=== PATIENT | female | born 1960 | race African-American/Black ===

== ENCOUNTER → 2019-11-07 07:48 | Outpatient (CLI) | payer OTHER, SELFPAY ==
--- NOTE | 2019-11-07 | DI.MG.S_ITS ---
BILATERAL DIGITAL SCREENING MAMMOGRAM 3D/2D WITH CAD: 11/07/2019 CLINICAL: Routine screening. Comparison is made to exams dated: 10/17/2018 mammogram, 10/20/2017 mammogram, and 11/08/2016 mammogram - [facility]. There are scattered fibroglandular elements in both breasts. Current study was also evaluated with a Computer Aided Detection (CAD) system. No significant masses, calcifications, or other findings are seen in either breast. There has been no significant interval change. IMPRESSION: NEGATIVE There is no mammographic evidence of malignancy. A 1 year screening mammogram is recommended. This exam was interpreted at Station ID: [id number]. NOTE: For mammograms, a report in lay terms will be sent to the patient. Approximately 15% of breast malignancies will not be visualized mammographically. In the management of a palpable breast mass, a negative mammogram must not discourage biopsy of a clinically suspicious lesion. Electronically Signed By: Glenis palacio/elina:11/07/2019 08:27:42 letter sent: Normal Exam ACR BI-RADS Category 1: Negative 3341F
== END ==
PROVIDERS: Family Provider Physician Assistant; PCP Physician Assistant; Referring Provider Physician Assistant; Visit Provider Physician Assistant
DX: Z12.31 Encounter for screening mammogram for malignant neoplasm of breast (principal)
CPT/HCPCS: 77063; 77067

== ENCOUNTER → 2020-05-02 08:31 | Outpatient (CLI) | payer OTHER, SELFPAY ==
[2020-05-03 09:26] LABS: COVID19 Sendout Not Detected (Not Detect)
== END ==
PROVIDERS: Family Provider Physician Assistant; PCP Physician Assistant; Visit Provider Physician Assistant
DX: Z11.59 Encounter for screening for other viral diseases (principal)
CPT/HCPCS: 87635

== ENCOUNTER 2020-05-05 08:23 | Day surgery (SDC) | payer OTHER, SELFPAY ==
[2020-05-05] VITALS (7 sets, daily range): BP systolic 91–104; BP diastolic 57–72; PULSE 52–77; RESP 9–21; TEMP 36.1–37.1; O2SAT 97–100; BMI 28.8
--- NOTE | 2020-05-05 | PATH_ITS ---
[facility] Accession Number: [id number] . 01 Material submitted: . PART A: colon - COLON POLYP AT 60CM PART B: colon - COLON POLYP AT 40CM PART C: colon - COLON POLYP AT 15CM . 01 Clinical history: . SDC . 02 Diagnosis: A. Colon, Polyp at 60 cm, Biopsy: Tubular adenoma. . B. Colon, Polyp at 40 cm, Biopsy: Tubular adenoma. . C. Colon, Polyp at 15 cm, Biopsy: Hyperplastic polyp. MRV 05/07/2020 1322 Local . 02 Electronically signed: . Leesa Dee MD, Pathologist NPI- [id number] . 01 Gross description: . Part A: COLON POLYP AT 60CM: Received in formalin are multiple fragment(s) of hickey, soft tissue measuring 0.6 x 0.5 x 0.2 cm in aggregate submitted entirely in 1 cassette(s) Part B: COLON POLYP AT 40CM: Received in formalin is 1 fragment(s) of hickey, soft tissue measuring 0.7 x 0.6 x 0.2 cm submitted entirely in 1 cassette(s) Part C: COLON POLYP AT 15CM: Received in formalin is 1 fragment(s) of hickey, soft tissue measuring 0.3 x 0.3 x 0.3 cm submitted entirely in 1 cassette(s) /QBJ 05/06/2020 0700 Local . 02 Pathologist provided ICD-10: D12.6 . 02 CPT . 563006, 519617, 932289 Performed at: [address] [facility], [place], [place] [id number] MD Mike Dorsey MD Phone: [phone] Performed at: [address] [place] [id number] [place] [id number] MD Leesa Dee MD Phone: [phone]
--- NOTE | 2020-05-05 09:52 | P.HP_ITS ---
History of Present Illness History of Present Illness Date Patient Seen: 05/05/20 Time Patient Seen: 09:29 Chief complaint: SDC Narrative: The patient is a woman here for screening colonoscopy her last exam was in 2012. She has a history of polyps. Her last exam she ceased breathing and became rigid and had to be bagged and reversed. Because of that anesthesia will be involved in this exam. We will avoid the use of Versed and fentanyl. Patient History Medical History Arthritis (Acute) Bruises easily (Acute) Diabetes (Acute) Eczema (Acute) History of colon polyps (Acute) Surgical History History of hysterectomy (Acute) History of laparoscopic cholecystectomy (Acute) Family & Social History Social History: household members spouse Tobacco & Substance use: Smoking Status Former smoker alcohol intake current alcohol intake frequency a few times a month Substance Use Type does not use Meds Home Medications and Allergies Home Medications Medication Instructions Recorded Confirmed Type aspirin [Aspirin Low Dose] 81 mg PO DAILY PRN 05/05/20 05/05/20 History conjugated estrogens [Premarin] 0.3 mg PO DAILY 05/05/20 05/05/20 History metformin 500 mg PO DAILY 05/05/20 05/05/20 History telmisartan [Micardis] 40 mg PO DAILY 05/05/20 05/05/20 History Allergies Allergy/AdvReac Type Severity Reaction Status Date / Time No Known Drug Allergies Allergy Verified 05/05/20 08:56 Review of Systems Review of Systems ROS: Yes All systems reviewed with the patient and are negative except as otherwise documented Exam Vital Signs (past 8 hours): - 05/05/20 09:05 Temperature 97.4 F L Pulse Rate 77 Respiratory Rate 12 Blood Pressure 97/72 Pulse Oximetry 100 Oxygen Delivery Method Room Air Narrative Exam Narrative: Pleasant cooperative patient no apparent distress. Lungs are clear to auscultation. No rales or rhonchi. Heart regular rate and rhythm no murmur gallop. Abdomen is soft nontender without mass. No obvious hernias. P atient is alert and oriented x3. Assessment & Plan Assessment & Plan narrative: The patient for a screening colonoscopy. I have discussed the procedure with them. Risks of bleeding, perforation which would necessitate major operation, failure to find remove all lesions, the potential tattoo were all discussed. All questions were answered. They wished to proceed.
--- NOTE | 2020-05-05 10:42 | PM.PREOP ---
Pre-operative Note COVID-19 COVID-19 status: Negative Result date/Date tested (Pos, Neg/Pending): 05/02/20 Interval Note History & Physical reviewed/Exam performed by Physician: Yes Changes to H&P: No
--- NOTE | 2020-05-05 10:42 | PM.OP.ENDO ---
Operative Date/Time/Diagnoses Date of procedure: 05/05/20 Time of procedure: 10:43 Pre-op diagnosis: Screening for colon cancer. History of polyps. Last exam was 7 years ago. The patient had an episode of rigidity in ceased breathing at that scope and therefore anesthesia is involved at this 1 Post-op diagnosis: same (Four polyps) Procedure & Clinicians Study performed: Colonoscopy with hot snare polypectomy and cold biopsy Same procedure as scheduled: Yes Indications: Screening Surgeon: Parker Hinds Procedure Notes SCOAP/Timeout: Perform Procedure in detail: The patient was placed in the left lateral decubitus position and underwent IV sedation directed by the surgeon consisting of fentanyl and Versed. Digital exam was unremarkable. The scope was inserted and advanced through the rectum into the sigmoid, descending, transverse, and ascending colon. The patient had a very tortuous distal sigmoid.. The cecum was reached identified by the ileocecal valve and the appendiceal opening. The ileocecal valve was successfully cannulated. The terminal ileum was normal in appearance. The scope was gradually brought out. Polyps were found at 60 cm(2 very small polyps), 40 cm(snared with a hot snare), polyp at 15 cm which may not have been a neoplastic lesion. The scope ultimately was retroflexed in the rectum. The appearance was normal. The scope was removed and the patient tolerated the procedure well. The prep was good Scope withdrawal time: Over 6 minutes(total time much Sedation minutes: 0 (Deep sedation provided by Anesthesia due to patient's prior history) Findings: polyp (Multiple) Specimen(s): other (Polyps) Complications: none Post-procedure Recommendations: Colonscopy in 5 years Follow up: as needed Disposition: PACU
--- NOTE | 2020-05-05 11:08 | SUR.PHASEI ---
Patient sitting up in bed, denied feeling dizzy or lightheaded.
[2020-05-05] MEDS: LACTATED RINGERS 1,000 ML 42 ML IV (11:30)
== END 2020-05-05 11:57 | disposition home or self-care (01) ==
PROVIDERS: Family Provider Physician Assistant; PCP Physician Assistant; Referring Provider Specialist; Visit Provider Specialist
PROC: 0DJD8ZZ Inspection of Lower Intestinal Tract, Via Natural or Artificial Opening Endoscopic (ICD-10-PCS; CPT 45378; principal; 2020-05-05 09:45)
DX: Z12.11 Encounter for screening for malignant neoplasm of colon (principal); Z86.010 Personal history of colon polyps; E11.9 Type 2 diabetes mellitus without complications; Z79.4 Long term (current) use of insulin; I10 Essential (primary) hypertension; D12.6 Benign neoplasm of colon, unspecified
CPT/HCPCS: 45385; 45380; J2250; J2704; J3010

== ENCOUNTER → 2020-11-10 08:06 | Outpatient (CLI) | payer OTHER, SELFPAY ==
--- NOTE | 2020-11-10 | DI.MG.S_ITS ---
BILATERAL DIGITAL SCREENING MAMMOGRAM 3D/2D WITH CAD: 11/10/2020 CLINICAL: Routine screening. Comparison is made to exams dated: 11/07/2019 mammogram - [facility], 10/17/2018 mammogram, and 10/20/2017 mammogram - [facility]. There are scattered fibroglandular elements in both breasts. Current study was also evaluated with a Computer Aided Detection (CAD) system. No significant masses, calcifications, or other findings are seen in either breast. There has been no significant interval change. IMPRESSION: NEGATIVE There is no mammographic evidence of malignancy. A 1 year screening mammogram is recommended. This exam was interpreted at Station ID: [id number]. NOTE: For mammograms, a report in lay terms will be sent to the patient. Approximately 15% of breast malignancies will not be visualized mammographically. In the management of a palpable breast mass, a negative mammogram must not discourage biopsy of a clinically suspicious lesion. Electronically Signed By: Everardo varela/elina:11/10/2020 09:08:20 letter sent: Normal Exam ACR BI-RADS Category 1: Negative 3341F
== END ==
PROVIDERS: Referring Provider Family Medicine; Visit Provider Family Medicine
DX: Z12.31 Encounter for screening mammogram for malignant neoplasm of breast (principal)
CPT/HCPCS: 77063; 77067

== ENCOUNTER → 2021-11-14 08:43 | Outpatient (CLI) | payer OTHER, SELFPAY ==
--- NOTE | 2021-11-14 | DI.MG.S_ITS ---
BILATERAL DIGITAL SCREENING MAMMOGRAM 3D/2D WITH CAD: 11/14/2021 CLINICAL: Routine screening. Comparison is made to exams dated: 11/10/2020 mammogram, 11/07/2019 mammogram - [facility], 10/17/2018 mammogram, and 10/20/2017 mammogram - [facility]. There are scattered fibroglandular elements in both breasts. Current study was also evaluated with a Computer Aided Detection (CAD) system. No significant masses, calcifications, or other findings are seen in either breast. There has been no significant interval change. IMPRESSION: NEGATIVE There is no mammographic evidence of malignancy. A 1 year screening mammogram is recommended. This exam was interpreted at Station ID: [id number]. NOTE: For mammograms, a report in lay terms will be sent to the patient. Approximately 15% of breast malignancies will not be visualized mammographically. In the management of a palpable breast mass, a negative mammogram must not discourage biopsy of a clinically suspicious lesion. Electronically Signed By: Jerzy conway/elina:11/16/2021 08:22:41 letter sent: Normal Exam ACR BI-RADS Category 1: Negative 3341F
== END ==
PROVIDERS: Referring Provider Family Medicine; Visit Provider Family Medicine
DX: Z12.31 Encounter for screening mammogram for malignant neoplasm of breast (principal)
CPT/HCPCS: 77063; 77067

== ENCOUNTER → 2021-12-15 12:53 | Outpatient (CLI) | payer OTHER, SELFPAY ==
--- NOTE | 2021-12-15 12:57 | DI.CT.S_ITS ---
PROCEDURE: CT ABDOMEN PELVIS W CON INDICATIONS: Generalized abdominal pain TECHNIQUE: After the administration of oral and IV contrast, axial sections were acquired from the lung bases to the pubic symphysis. Coronal and sagittal reformats were performed. For radiation dose reduction, the following was used: automated exposure control, adjustment of mA and/or kV according to patient size. COMPARISON: Outside Film, CT, CT ABDOMEN PELVIS WITH CONTRAST, 08/28/2020, 10:39. FINDINGS: Image quality: Excellent. Lung bases: Unremarkable. Heart: No significant findings. ABDOMEN: Liver: Scattered calcifications in the liver, which may reflect granulomas. Normal contour and enhancement. Gallbladder: Cholecystectomy. Biliary ducts: Unremarkable. Pancreas: Unremarkable. Spleen: Unremarkable. Adrenal Glands: Unremarkable. Kidneys and Ureters: Unremarkable. 1.2 cm hypoattenuating lesion in the right lower pole, most consistent with a cyst. Stomach and Bowel: No evidence of intestinal obstruction or inflammatory change. Large stool burden throughout the colon. Normal appendix. Peritoneum: No abnormal intraperitoneal fluid. No free air. Ventral Wall: No hernia. Abdominal Nodes: No retroperitoneal or mesenteric adenopathy by size criteria. Vessels: Aorta and inferior vena cava are normal in size. PELVIS: Pelvic Organs: Unremarkable. Bladder: Unremarkable. Pelvic Nodes: No enlarged lymph nodes. Miscellaneous: A small fat containing femoral hernia is seen (2-65). Focus of soft tissue density in the left paracentral ventral subcutaneous fat, which may reflect infarction. Bones: Unremarkable. 4 nonrib-bearing vertebrae. IMPRESSION: 1. No significant abnormality. Dictated by: Dalton Woodall M.D. on 12/15/2021 at 15:03 Approved by: Dalton Woodall M.D. on 12/15/2021 at 15:11
== END ==
PROVIDERS: PCP Family Medicine; Referring Provider Internal Medicine; Visit Provider Internal Medicine
DX: R10.84 Generalized abdominal pain (principal); R68.81 Early satiety; R14.0 Abdominal distension (gaseous)
CPT/HCPCS: 74177; Q9967

== ENCOUNTER → 2022-11-17 09:58 | Outpatient (CLI) | payer OTHER, SELFPAY ==
--- NOTE | 2022-11-17 | DI.MG.S_ITS ---
BILATERAL DIGITAL SCREENING MAMMOGRAM 3D/2D WITH CAD: 11/17/2022 CLINICAL: Routine screening. Comparison is made to exams dated: 11/14/2021 mammogram, 11/10/2020 mammogram, 11/07/2019 mammogram - [facility], and 10/17/2018 mammogram - [facility]. There are scattered areas of fibroglandular density in both breasts (category b / 25%-50% glandular tissue). Current study was also evaluated with a Computer Aided Detection (CAD) system. No significant masses, calcifications, or other findings are seen in either breast. There has been no significant interval change. IMPRESSION: NEGATIVE There is no mammographic evidence of malignancy. A 1 year screening mammogram is recommended. Based on the Tyrer Cuzick model (a risk assessment model) the patient's lifetime risk is 5.6% and her 10 year risk is 2.5%. According to the ACR, ACS, and NCCN guidelines, an annual breast MRI exam along with mammogram is recommended if the patient's lifetime risk is 20% or greater. This exam was interpreted at Station ID: [id number]. NOTE: For mammograms, a report in lay terms will be sent to the patient. Approximately 15% of breast malignancies will not be visualized mammographically. In the management of a palpable breast mass, a negative mammogram must not discourage biopsy of a clinically suspicious lesion. Electronically Signed By: Jerzy conway/elina:11/17/2022 12:42:30 letter sent: Normal Exam ACR BI-RADS Category 1: Negative 3341F
== END ==
PROVIDERS: PCP Family Medicine; Referring Provider Family Medicine; Visit Provider Family Medicine
DX: Z12.31 Encounter for screening mammogram for malignant neoplasm of breast (principal)
CPT/HCPCS: 77063; 77067

== ENCOUNTER → 2023-11-19 07:54 | Outpatient (CLI) | payer OTHER, SELFPAY ==
--- NOTE | 2023-11-19 | DI.MG.S_ITS ---
BILATERAL DIGITAL SCREENING MAMMOGRAM 3D/2D WITH CAD: 11/19/2023 CLINICAL: Routine screening. Comparison is made to exams dated: 11/17/2022 mammogram, 11/14/2021 mammogram, and 11/10/2020 mammogram - [facility]. There are scattered areas of fibroglandular density in both breasts (category b / 25%-50% glandular tissue). Current study was also evaluated with a Computer Aided Detection (CAD) system. No significant masses, calcifications, or other findings are seen in either breast. There has been no significant interval change. IMPRESSION: NEGATIVE There is no mammographic evidence of malignancy. A 1 year screening mammogram is recommended. Based on the Tyrer Cuzick model (a risk assessment model) the patient's lifetime risk is 5.4% and her 10 year risk is 2.5%. According to the ACR, ACS, and NCCN guidelines, an annual breast MRI exam along with mammogram is recommended if the patient's lifetime risk is 20% or greater. This exam was interpreted at Station ID: [id number]. NOTE: For mammograms, a report in lay terms will be sent to the patient. Approximately 15% of breast malignancies will not be visualized mammographically. In the management of a palpable breast mass, a negative mammogram must not discourage biopsy of a clinically suspicious lesion. Electronically Signed By: Glenis palacio/elina:11/21/2023 17:16:01 letter sent: Normal Exam ACR BI-RADS Category 1: Negative 3341F
== END ==
LOC: MAMMO 07:55
PROVIDERS: PCP Family Medicine; Referring Provider Family Medicine; Visit Provider Family Medicine
DX: Z12.31 Encounter for screening mammogram for malignant neoplasm of breast (principal); R92.323 Mammographic fibroglandular density, bilateral breasts
CPT/HCPCS: 77063; 77067

== ENCOUNTER → 2024-11-22 17:41 | Outpatient (CLI) | payer OTHER, SELFPAY ==
--- NOTE | 2024-11-22 17:44 | DI.MG.S_ITS ---
MM screening mammo BI: 11/22/2024. BI-RADS: 1 CLINICAL: 64-year old female for bilateral screening mammogram. Tyrer-Cuzick lifetime risk of 3.9%. No personal or first-degree family history of breast cancer. PRIOR EXAMS 11/19/2023, 11/17/2022, 11/14/2021, 11/10/2020, 11/07/2019. MAMMOGRAPHY TECHNIQUE: 2D and 3D (tomosynthesis) digital mammographic views obtained, with additional images as needed for full coverage. Current study was also evaluated with a Computer Aided Detection (CAD) system. DENSITY B. There are scattered areas of fibroglandular density. MAMMOGRAPHY FINDINGS Bilateral: No suspicious mass, asymmetry, microcalcification, or other abnormality seen. No significant change from comparison. IMPRESSION: * No evidence of malignancy. RECOMMENDATIONS Bilateral * Annual screening mammography. OVERALL ASSESSMENT CATEGORY BI-RADS-1: Negative. The [employer] recommends annual screening mammography beginning at age 40 for women with average risk of breast cancer. ELECTRONICALLY SIGNED: Roselyn Nicole M.D. on 11/23/2024 at 12:37:04 PM PT Interpreting Station ID: [id number]
== END ==
PROVIDERS: PCP Family Medicine; Referring Provider Family Medicine; Visit Provider Family Medicine
DX: Z12.31 Encounter for screening mammogram for malignant neoplasm of breast (principal)
CPT/HCPCS: 77063; 77067